=== PATIENT | male | born 1965 | race Two or more races ===

== ENCOUNTER 2019-11-23 08:15 | Day surgery (SDC) | payer BC ==
[~2019-11-23] VITALS: Ht 165.1 cm; Wt 141.5 kg
[~2019-11-23 08:15] MED LIST: ACCU-CHEK COMFORT CURVE STRIP VI ONE; ASPI-543 PO; CHOL200021 PO; GLIM4TAB42 PO; HYDROmorphone HCL 2 MG/ML VL IV PRN; INSU0.2I SC; MAGN400T40 PO; METF-490 PO; METOCLOPRAMIDE HCL 5MG/ml INJ 2ml VIAL IV PRN; MORPHINE SULFATE 4 MG/ML SYR/VIAL IV PRN; OMEG1CAP31 PO; PIOG15TA38 PO; fentaNYL CITRATE 100 MCG/2 ML VL IV PRN
[2019-11-23] MEDS ORDERED: HEPARIN SODIUM (PORCINE) 5000 UNITS/ML 1ML VIAL ONE (08:38)
[2019-11-23] MEDS ORDERED: ceFAZolin 1GM/50ML 150 ML IV ONE (08:38)
[2019-11-23] MEDS ORDERED: ONDANSETRON HCL 4 MG/2 ML VIAL ONE (08:51)
[2019-11-23] MEDS ORDERED: ROCURONIUM 10MG/ML 10ML VIAL IV ONE (08:51)
[2019-11-23] MEDS ORDERED: SODIUM CHLORIDE LOCK 10 ML ONE (08:51)
[2019-11-23] MEDS ORDERED: fentaNYL CITRATE 100 MCG/2 ML VL ONE (08:51)
[2019-11-23] MEDS ORDERED: MEPERIDINE HCL (25 MG/ML) 1ML VIAL ONE (08:51)
[2019-11-23] MEDS ORDERED: PROPOFOL 10 MG/ML 20 ML IV ONE (08:51)
[2019-11-23] MEDS ORDERED: MIDAZOLAM HCL 1MG/1ML-2 ML VIAL ONE (08:51)
[2019-11-23] MEDS ORDERED: ETOMIDATE (2MG/ML) 20ML VIAL IV ONE (08:53)
[2019-11-23] MEDS ORDERED: NEOSTIGMINE 1 MG/ML INJ (10mg/10ML VIAL) ONE (09:28)
[2019-11-23] MEDS ORDERED: GLYCOPYRROLATE 0.2 MG/ML 1ML VIAL ONE (09:28)
[2019-11-23] MEDS ORDERED: BACITRACIN INJ 50000 UNIT VIAL ONE (09:46)
[2019-11-23] MEDS ORDERED: LIDOCAINE 2% (LOCAL ANESTH.) PF 5ml SDV ONE (09:52)
[2019-11-23] MEDS ORDERED: DOCU-94 PO (10:31)
[2019-11-23] MEDS ORDERED: HYDR-4833 GT (10:31)
[2019-11-23 12:34] VITALS: BP 127/79
== END 2019-11-23 10:31 | disposition home or self-care (01) ==
LOC: SUR 08:15
PROVIDERS: ATTEND Surgery
DX: K42.0 Umbilical hernia with obstruction, without gangrene (principal); J45.909 Unspecified asthma, uncomplicated; E11.9 Type 2 diabetes mellitus without complications; Z68.44 Body mass index [BMI] 60.0-69.9, adult; Z98.890 Other specified postprocedural states
CPT/HCPCS: 49587; C1781; J0690; J1644; J2001; J2175; J2250; J2405; J2704; J3010